=== PATIENT | male | born 1940 | race African-American/Black ===

== ENCOUNTER 2018-07-08 23:12 | Inpatient (IN) ==
[2018-07-09 00:46] LABS: BASO# 0.02 X1000 (0.0-0.2); BASO% 0.2 % (0.0-0.8); EOS# 0.02 X1000 (0.0-0.7); EOS% 0.2 % (0.0-10.0); HEMATOCRIT 39.5 % (42.0-52.0); HEMOGLOBIN 13.2 g/dL (14.0-18.0); LYMPH# 2.33 X1000 (1.2-3.4); LYMPH% 17.5 % (20.5-51.1); MCH 29.6 PG (27-31); MCHC 33.4 g/dL (33-37); MCV 88.6 FL (81-99); MONO# 0.89 X1000 (0.11-0.59); MONO% 6.7 % (1.7-9.3); MPV 10.9 FL (7.4-10.4); NEUT# 10.06 X1000 (1.4-6.5); NEUT% 75.4 % (42.2-75.2); PLT 422 X1000 (130-400); RBC 4.46 XMIL (4.7-6.1); RDW 13.5 % (11.5-14.5); WBC 13.32 X1000 (4.8-10.8)
[2018-07-09 01:31] LABS: ALB/GLOB RATIO 1.3; ALBUMIN 4.6 g/dL (3.5-5.0); CALCIUM 9.2 mg/dL (8.8-10.2); CREATININE 6.4 mg/dL (0.7-1.2); POTASSIUM 4.1 mmol/L (3.5-5.1); TOTAL BILIRUBIN 1.43 mg/dL (0.20-1.00); TOTAL PROTEIN 8.2 g/dL (6.3-8.3)
[2018-07-09] MEDS ORDERED: ZOFRAN IV ONE (02:21)
[2018-07-09] MEDS ORDERED: THORAZINE IV ONE (02:21)
[2018-07-09] MEDS ORDERED: NS IV ONE (02:21)
[2018-07-09] MEDS ORDERED: NS 1,000 ML IV ONE ×2 (02:21→04:54)
--- NOTE | 2018-07-09 02:41 | PROVIDER DOCUMENTATION ---
HPI-General Adult - General Chief Complaint: Post Op Complaint Stated Complaint: POST OP COMPLAINT Time Seen by Provider: 07/09/18 02:15 Source: patient, family Allergies/Adverse Reactions: Patient Allergies Allergy/AdvReac Type Severity Reaction Status Date / Time No Known Allergies Allergy Verified 07/05/14 10:49 Home Medications: Home Medication List Medication Instructions Recorded Confirmed Last Taken Type Aspirin EC 81 mg PO DAILY 04/01/14 07/05/14 07/05/14 07:00 History Omeprazole 40 mg PO DAILY 04/01/14 07/05/14 07/05/14 07:00 History Amoxicillin 500 mg PO TID 07/05/14 07/05/14 07/04/14 08:00 History LISINOpril [Prinivil] 10 mg PO DAILY 07/05/14 07/05/14 07/05/14 08:00 History Meclizine [Antivert] 12.5 mg PO TID PRN #20 tablet 07/05/14 Unknown Rx - History of Present Illness -Gen Adult Nature of Presenting Problems: 77 y/o M presents to the ED complaining of hiccups. States he had a lap splenic flexure resection due to a polyp done by Dr. Slater at [facility] on 06/21/18. States he had been doing well until a few days ago when he began to have hiccups and with this has had nausea and vomiting. No fever no diarrhea. States he called Dr. Slater who recommended he come to the ED to be evaluated. No fever. Review of Systems - Adult - REVIEW OF SYSTEMS - ADULT Constitutional: reports: no symptoms reported Eyes: reports: no symptoms reported Ears, Nose, Mouth & Throat: reports: no symptoms reported Cardiovascular: reports: no symptoms reported Respiratory: reports: no symptoms reported, other (hiccups) Gastrointestinal: reports: nausea, vomiting Genitourinary: reports: no symptoms reported Musculoskeletal: reports: no symptoms reported Integumentary: reports: no symptoms reported Neurological: reports: no symptoms reported Psychiatric: reports: no symptoms reported Endocrine: reports: no symptoms reported Hematologic/Lymphatic: reports: no symptoms reported Allergic/Immunologic: reports: no symptoms reported All Other Systems: Reviewed and Negative Past History - Adult - PAST MEDICAL HISTORY-ADULT Review of Records: reports: Old Records Reviewed, Nursing Assessment Review, Medications Reviewed, Social history reviewed & non-contributory. Cardiovascular: reports: HTN Gastrointestinal: reports: GERD Musculoskeletal: reports: orthopedic injury Other Conditions: reports: other (vertigo) - PRIOR SURGERIES/PROCEDURES Surgical/Procedure History: reports: joint replacement (left knee) Physical Exam-General - PHYSICAL EXAM-ADULT Initial Vital Signs Reviewed: Yes - CONSTITUTIONAL General Appearance: appears well, alert, no apparent distress - EYES Eyes: PERRL/EOMI - HEAD, EARS, NOSE, MOUTH & THROAT HENMT: normocephalic/atraumatic, moist mucous membranes, normal ENT inspection - NECK Neck: non-tender, full range of motion, supple - RESPIRATORY Respiratory: chest non-tender, lungs clear, normal breath sounds - CARDIOVASCULAR Cardiovascular: normal peripheral pulses, regular rate, rhythm, no edema, no JVD - GASTROINTESTINAL (ABDOMEN) Abdominal Exam: non tender, soft, other (incisions clean dry intacted and healing well). negative: distended - MUSCULOSKELETAL Back Exam: normal inspection, no CVA tenderness, no vertebral tenderness Extremity: normal range of motion, non-tender, no pedal edema, no calf tenderness - SKIN Integumentary: normal color, normal turgor, warm/dry - NEUROLOGIC Neurologic: grossly normal, no motor/sensory deficits - PSYCHIATRIC Psych/Mental Status: normal mood/affect, normal thought content, normal thought process, oriented x 3 Progress - PLAN OF CARE/RESULTS Progress/Plan/Lab Results: Vital Signs - 8 hr 07/08/18 23:23 Temperature 97.9 F Pulse Rate 96 H Respiratory Rate 15 Blood Pressure 101/65 Laboratory Results - last 24 hr 07/09/18 07/09/18 00:36 00:36 WBC 13.32 H RBC 4.46 L Hgb 13.2 L Hct 39.5 L MCV 88.6 MCH 29.6 MCHC 33.4 RDW Std Deviation 13.5 Plt Count 422 H MPV 10.9 H Immature Gran % (Auto) 0.0 Neut % (Auto) 75.4 H Lymph % (Auto) 17.5 L Lyman % (Auto) 6.7 Eos % (Auto) 0.2 Baso % (Auto) 0.2 Immature Gran # (Auto) 0.00 Neut # (Auto) 10.06 H Lymph # (Auto) 2.33 Lyman # (Auto) 0.89 H Eos # (Auto) 0.02 Baso # (Auto) 0.02 Sodium 141 Potassium 4.1 Chloride 94 L Carbon Dioxide 24 L Anion Gap 23 BUN 65 H Creatinine 6.4 H Estimated GFR/1.73 m2 10 BUN/Creatinine Ratio 10 Glucose 115 H Calculated Osmolality 301 Calcium 9.2 Total Bilirubin 1.43 H AST 59 H ALT 60 H Alkaline Phosphatase 97 Total Protein 8.2 Albumin 4.6 Globulin 3.6 Albumin/Globulin Ratio 1.3 Amylase 119 Lipase 74 H Orders Category Date Time Status IV Insertion ORDERED Care 07/09/18 02:21 Active NPO Diet 07/08/18 23:[address] ABD/PELVIS W/IV CONT ONLY [CT] Stat Exams 07/09/18 02:21 Ordered AMYLASE [CHEM] Stat Lab 07/09/18 00:36 Completed CBC WITH ELECTRONIC DIFF [HEME] Stat Lab 07/09/18 00:36 Completed COMPREHENSIVE METABOLIC PANEL [CHEM] Stat Lab 07/09/18 00:36 Completed LIPASE [CHEM] Stat Lab 07/09/18 00:36 Completed URINALYSIS W/POSS RFLX CULT [URINALYSIS] Stat Lab 07/08/18 23:35 Uncollected 0.9% Sodium Chloride Inj [Ns] 1,000 ml Med 07/09/18 02:21 Active IV 999 mls/hr Chlorpromazine [Thorazine] 50 mg Med 07/09/18 02:21 Active 0.9% Sodium Chloride Inj [Ns] 50 ml IV NOW Ondansetron [Zofran] Med 07/09/18 02:21 Discontinued 4 mg IV NOW ONE hiccups with nausea and vomiting after recent colon resection will further evaluate for causes including but not limited to abscess, perforation, diaphragmatic irritation, gastritis, pancreatitis Result Diagrams: 07/09/18 00:36 07/09/18 00:36 - REASSESSMENT Reassessment #1 Status: improving (feeling well, hiccups resolved. Discussed case and CT findings with Dr. Fajardo, Surgeon at [facility], who does not feel that pt's CT findings represent any acute infection and does not feel that pt needs any abx at this time. Recommends admission at our facility for treatment of his ARF. Discussed case wtih Dr Benitez, hospitalist who will see and admit pt.) - CT/MRI 1 CT Study: Abdomen, Pelvis Impression: Abnormal (Per radiologist read: moderate cholelithiasis, fat stranding in the region of the colonic suture anastamosis in the midabdomen associated diverticulosis, consideration would include mild acute diverticulitis. mild wall thickening of the distal thoracic esophagus, consideration would include esophagitis or esophageal neoplasm) Departure - Departure Date of Disposition Decision: 07/09/18 Time of Disposition Decision: 04:59 DIAGNOSIS: Hiccups Acute renal failure Qualifiers: Acute renal failure type: unspecified Qualified Code(s): N17.9 - Acute kidney failure, unspecified Disposition: ADMITTED INPATIENT 09 Certified Medical Emergency: Emergent Condition: Good Referrals and Follow-Ups: Ryanne Arrieta MD [Primary Care Provider] - - Critical Care Note This patient required my direct & personal management of CC.: No Attestation - Physician/ NICHOLE Attestation Patient care was provided by Advanced Practice Provider:: No The physician spent face to face time with patient:: Yes Advanced Practice Provider documentation review:: Supervising physician onsite and consulted in the evaluation and care of this patient. The physician did have a face to face encounter with the patient.
[2018-07-09 06:10] LABS: URINE SOURCE CLEAN CATCH
[2018-07-09 06:12] LABS: BILIRUBIN URINE SMALL (NEGATIVE); BLOOD URINE LARGE (NEGATIVE); COLOR YELLOW; GLUCOSE URINE NEGATIVE (NEGATIVE); KETONE URINE NEGATIVE (NEGATIVE); LEUKOCYTES URINE TRACE (NEGATIVE); NITRITE URINE NEGATIVE (NEGATIVE); PROTEIN URINE 50 mg/dL (NEGATIVE); SP GRAVITY URINE 1.016; TURBIDITY URINE HAZY (CLEAR); UROBILINOGEN URINE NORMAL (NORMAL)
[2018-07-09 06:13] LABS: UR EPITHELIAL CELLS <10 /HPF (<10); URINE BACTERIA NEGATIVE /HPF; URINE RBC TNTC /HPF (<10)
[2018-07-09] MEDS: NS 1,000 ML IV SCH ×3 (06:22→23:10)
[2018-07-09] MEDS ORDERED: ANTIVERT PO PRN (06:39)
[2018-07-09] MEDS: LEVAQUIN PO SCH (06:47)
[2018-07-09] MEDS: PRILOSEC PO SCH (06:47)
--- NOTE | 2018-07-09 06:48 | Diag Imaging Result Doc PS360 ---
CT ABDOMEN/PELVIS W/O CONTRAST - 07/09/2018 INDICATION: hiccups and renal failure s/p recent colon resecti COMPARISON: None FINDINGS: There is COPD in the lung bases. No infiltrates. Heart size is normal with no pericardial effusion. There are several radiodense stones in the gallbladder. No gallbladder distention or inflammation. No radiodense renal stones. No hydronephrosis or hydroureter. There are surgical suture lines of the transverse colon. There has been partial colectomy here mainly of the splenic flexure and descending colon. There is significant diverticulosis of the sigmoid colon which has been anastomosed to the transverse colon. No free air or free fluid. There is a calcification in the floor of the urinary bladder. This measures 5.6 mm. Urinary bladder is collapsed with nonspecific wall thickening. Prostate and rectum are normal. There is focal wall thickening of the distal esophagus. There are some adjacent lymph nodes here that are nonspecific. There are advanced degenerative changes of the spine and hips. No acute or suspicious bony lesion. IMPRESSION: 1. COPD. 2. Stones in the gallbladder. 3. Small stone in the urinary bladder. Source is unclear. 4. Diverticulosis coli. 5. Focal wall thickening of the distal esophagus. This may reflect esophagitis, stricture, or cancer. This exam was performed using automated exposure control, adjustment of mA or kV according to patient size, and/or use of iterative reconstruction technique Electronically signed by Anoop Raygoza 07/09/2018 6:46 AM
[2018-07-09 06:55] LABS: UR CREAT RANDOM 407.9 mg/dL (14-26); UR SODIUM < 10 mmoll
--- NOTE | 2018-07-09 07:41 | HISTORY AND PHYSICAL ---
CHIEF COMPLAINT: Hiccups. HISTORY OF PRESENT ILLNESS: Mr. Tomas Copeland is a 77-year-old male who has a history of hypertension, gastroesophageal reflux disease as well as vertigo. Recently, he had laparoscopic splenic flexure resection done for polyp. This was done by Dr. Slater at [facility] on 06/21/2018. The patient now presents to the hospital because of hiccups associated with nausea and vomiting. No diarrhea. No fever. His hiccups did respond to Thorazine. However, as part of the workup done in the ER he had the BUN and creatinine obtained which showed significant impairment in his renal function. The BUN is 65 and creatinine of 6.4. The patient will now be admitted to the hospital for further management. PAST MEDICAL HISTORY: Hypertension, gastroesophageal reflux disease as well as vertigo. PAST SURGICAL HISTORY: He has had left knee replacement as well as recent laparoscopic splenic flexure resection for polyp. SOCIAL HISTORY: No cigarette smoking. No alcohol or drug use. ALLERGIES: No known drug allergies. FAMILY HISTORY: Noncontributory. MEDICATIONS: Include the followin. Aspirin 81 mg p.o. daily. 2. Omeprazole 40 mg p.o. daily. 3. Amoxil 500 mg p.o. 3 times a day. 4. Lisinopril 10 mg p.o. daily. 5. Meclizine 12.5 mg 3 times a day p.r.n. REVIEW OF SYSTEMS: Constitutional: No fevers. TOMBSTONE SETTER: No headaches. HEENT: Eyes: No blurred vision. ENT: No sinus problems. Cardiovascular: No chest pain. Respiratory: No cough. GI: No nausea, vomiting, or diarrhea. : No dysuria. Musculoskeletal: No joint pains. Endocrinologic: No thyroid disease or diabetes. Hematology: No bleeding problems. PHYSICAL EXAMINATION: VITAL SIGNS: On admission, vital signs as follows: Temperature is 98.1 degrees, pulse 92, respiratory rate 16, blood pressure 91/51, and oxygen saturation is 96%. HEENT: Atraumatic, normocephalic. No oral lesions noted. NECK: No lymphadenopathy or thyromegaly. CARDIOVASCULAR: S1, S2. RESPIRATORY: There is evidence of good air entry bilaterally. ABDOMEN: Soft, nontender. No masses felt. EXTREMITIES: No evidence of edema. CENTRAL NERVOUS SYSTEM: No obvious focal deficits noted. LABORATORY: WBC is 13.32, hematocrit is 39.5 with a platelet count of 422,000. Sodium is 141, potassium 4.1, chloride 94, bicarb 24, BUN is 55 creatinine is 6.4. UA shows large amount of blood as well as 10-20 WBCs per high-power field. ASSESSMENT AND PLAN: This is a 77-year-old male who recently had laparoscopic resection of splenic flexure nonfocal polyp, and now presents to the hospital. He comes and found to have impaired renal function. 1. Acute kidney injury. We will discontinue lisinopril. Maintain patient on intravenous fluids. We will obtain urine electrolytes, renal ultrasound and check PTH level, 25 hydroxy vitamin D level. I will also get a CK level, ARELI level, ANCA level, hepatitis panel, and urine drug screen. Consult with Nephrology. 2. Anemia. We will obtain iron studies along with B12 and folate level. Stool for occult blood. 3. Abnormal liver function test. Get hepatitis panel, ARELI level, ferritin level, and also abdominal ultrasound. 4. Hypertension. Controlled. We will avoid EVER inhibitors. 5. Pyuria. We will obtain urine culture. Start patient on empiric antibiotics pending when the cultures return. 6. Deep vein thrombosis prophylaxis. Sequential compression devices. 7. Gastrointestinal prophylaxis. PPI. cc: MD Ras Potter MD MTDD
[2018-07-09 07:52] LABS: CK TOTAL 245 U/L (24-204); IRON SATURATION 16 %; TIBC 402 ug/dL; TOTAL IRON 64 ug/dL (53-167); UNBOUND IRON 338 ug/dL (112-346)
[2018-07-09] MEDS: ASPIRIN EC PO SCH (08:14)
--- NOTE | 2018-07-09 08:20 | Diag Imaging Result Doc PS360 ---
EXAM: US ABDOMEN-COMPLETE 07/09/2018 HISTORY: abnormal lfts TECHNIQUE: Abdominal ultrasound COMMENT: The visualized portions of the pancreas are within normal limits. The visualized portions of the aorta and inferior vena cava are within normal limits. The study is somewhat suboptimal due to poor sonographic windows and the patient's body habitus. Liver is slightly hyperechoic. There is antegrade flow in the portal vein. There are multiple stones with shadowing in the gallbladder. No para cholecystic fluid or wall thickening is present. There is no sonographic Payan sign. The common bile duct measures less than 3 mm. The kidneys are without evidence of hydronephrosis or mass. The spleen is not enlarged. The urinary bladder is not distended. IMPRESSION: Hepatic steatosis. Cholelithiasis. Electronically signed by Haresh Ramirez 07/09/2018 8:18 AM
[2018-07-09 10:24] LABS: ALBUMIN 4.5 g/dL (3.5-5.0); CALCIUM 8.8 mg/dL (8.8-10.2); CREATININE 6.9 mg/dL (0.7-1.2); PHOSPHORUS 5.6 mg/dL (2.7-4.5); POTASSIUM 4.1 mmol/L (3.5-5.1)
[2018-07-09] MEDS ORDERED: SODIUM CHLORIDE 0.9% INJ SCH (13:15)
[2018-07-09] MEDS ORDERED: PROTONIX IV SCH (13:15)
[2018-07-09] MEDS: ZOFRAN IV PRN ×2 (13:28→22:41)
[2018-07-09 16:35] LABS: URINE SOURCE VOIDED
[2018-07-09 16:40] LABS: BILIRUBIN URINE NEGATIVE (NEGATIVE); BLOOD URINE SMALL (NEGATIVE); COLOR YELLOW; GLUCOSE URINE NEGATIVE (NEGATIVE); KETONE URINE TRACE mg/dL (NEGATIVE); LEUKOCYTES URINE NEGATIVE (NEGATIVE); NITRITE URINE NEGATIVE (NEGATIVE); PROTEIN URINE TRACE mg/dL (NEGATIVE); SP GRAVITY URINE 1.013; TURBIDITY URINE CLEAR (CLEAR); UR EPITHELIAL CELLS <10 /HPF (<10); URINE BACTERIA NEGATIVE /HPF; URINE RBC <10 /HPF (<10); URINE WBC <10 /HPF (<10); UROBILINOGEN URINE NORMAL (NORMAL)
--- NOTE | 2018-07-09 17:04 | NEPHROLOGY CONSULTATION ---
DATE: 07/09/2018 REASON FOR CONSULTATION: Acute kidney injury. HISTORY OF PRESENT ILLNESS: Mr. Copeland is a 77-year-old man who was in his usual state of good health until he had a partial colectomy at [facility] on June 21. He was admitted for 2 to 3 days according to his and was having regular bowel movements though perhaps not as high volume as was normal for him. Otherwise he was eating. No other new symptoms, shortness of breath, swelling etc. He was discharged from the hospital on ondansetron and ibuprofen 800 mg 3 times a day in addition to his routine medicines which included lisinopril for hypertension. He had his postoperative followup visit on Thursday of this week at which time he received a good report. Subsequently on Thursday he began having hiccups which were without any other associated symptoms. Again his intake was somewhat low and he continued to take the medications as prescribed. Ultimately because his hiccups would not improve, he contacted [facility] and was directed to the emergency room for imaging. CT of the abdomen was performed which did not demonstrate any findings that were particularly relevant given his symptoms. He did have focal thickening of the distal esophagus as well as a small bladder stone, diverticulosis and gallbladder stones. Laboratory data collected at the time found his creatinine 6.4. He was treated with Thorazine and IV fluids and admitted to the hospital. The states that his urine volume has been somewhat low. He has been very somnolent since he received the Thorazine and he was really not able to participate in the exam. PAST MEDICAL HISTORY: As above. He does not have diabetes. HOME MEDICATIONS: Include aspirin, ibuprofen, ondansetron, omeprazole, lisinopril, amoxicillin, Antivert. ALLERGIES: None. SOCIAL HISTORY: He is and lives with his . No tobacco use. FAMILY HISTORY: Otherwise noncontributory. REVIEW OF SYSTEMS: Otherwise noncontributory. PHYSICAL EXAMINATION: Vital Signs: Blood pressure 118/58, heart rate 81, respirations 20, afebrile. General: No acute distress. Skin: Warm and dry. HEENT: Conjunctivae are pink. Pupils are equal. He resists eye opening however. Oropharynx is dry. Dentition normal. Tongue is midline. Trachea is nondisplaced. Neck: Neck veins are not distended. Heart: Regular rate and rhythm with S4 but no S3. No gallops otherwise, no murmurs, no rubs. Lungs: Have equal excursion, equal breath sounds. No crackles or wheezes, accessory muscle use or retractions. Abdomen: Soft, nontender. Normal bowel sounds. No organomegaly or masses or bruits. Extremities: Have no edema, clubbing, or cyanosis. IMPRESSION: Acute kidney injury. Presumed. His FENa is markedly low and his urine has both red cells and white cells. Differential includes intravascular volume depletion, hemodynamic acute kidney injury from impaired glomerular autoregulation in the context of lisinopril and high-dose ibuprofen. Otherwise, he is certainly at risk for acute interstitial nephritis from his ibuprofen. No urologic obstruction visible. PLAN: 1. IV fluids 100 mL an hour to continue. 2. Check urine electrolytes, urine eosinophils. 3. Hold ibuprofen and lisinopril as you are doing. 4. I counseled the patient and that he may require hemodialysis and kidney biopsy for diagnosis and management. I discussed the context in which these may be required and potential benefits as well as cost. cc: MD Ras Prieto MD
[2018-07-10] MEDS: ZOFRAN IV PRN ×4 (05:12→22:10)
[2018-07-10] MEDS: NS 1,000 ML IV SCH ×3 (05:18→18:55)
[2018-07-10 07:09] LABS: HEMATOCRIT 34.7 % (42.0-52.0); HEMOGLOBIN 11.3 g/dL (14.0-18.0); MCH 29.9 PG (27-31); MCHC 32.6 g/dL (33-37); MCV 91.8 FL (81-99); MPV 11.2 FL (7.4-10.4); RBC 3.78 XMIL (4.7-6.1); RDW 13.5 % (11.5-14.5); WBC 8.3 X1000 (4.8-10.8)
[2018-07-10 07:42] LABS: ALBUMIN 3.7 g/dL (3.5-5.0); CALCIUM 8.5 mg/dL (8.8-10.2); CREATININE 3.4 mg/dL (0.7-1.2); PHOSPHORUS 3.1 mg/dL (2.7-4.5); POTASSIUM 3.6 mmol/L (3.5-5.1)
[2018-07-10] MEDS: ASPIRIN EC PO SCH (10:20)
--- NOTE | 2018-07-10 11:17 | PROGRESS NOTE ---
DATE: 07/10/2018 SUBJECTIVE: The patient says he is feeling fine. OBJECTIVE: Vital Signs: Blood pressure is 122/66, respirations 16, pulse 72, temperature 98.5 degrees Fahrenheit. Oxygen saturation is 94%. HEENT: Normocephalic. EOMS intact. PERRLA. Throat clear. Lungs: Clear to auscultation and percussion without rhonchi, rales, or wheezes. Heart: Regular rate and rhythm without murmurs, gallops, friction rubs. Abdomen: Soft. Active bowel sounds. No organomegaly or tenderness. Neurological: Exam intact grossly. LABORATORY: Shows white count of 13,320; it has come down today to 8300. Hemoglobin 11.3, hematocrit 34.7 potassium is 3.6, creatinine came down from 6.9 to 3.4. Urine cultures are pending. The patient had 2 urinalyses on the same day. The first clean-catch urine showed 10 to 20 WBCs and RBCs too numerous to count. It was repeated 12 hours later, and there were trace ketones, but no blood, no pus. Two urine cultures are pending, but results are not back yet. ASSESSMENT: Acute renal failure. PLAN: Continue IV fluids and support. Question about UTI or not. cc: MD Ras Gonzalez Jr, MD
[2018-07-10 13:47] LABS: ANTINEUTROPHIL CYTOPLASMIC AB SEE COMMENTS
[2018-07-10] MEDS: PRILOSEC PO SCH (20:01)
--- NOTE | 2018-07-10 22:28 | NEPHROLOGY PROGRESS NOTE ---
DATE: 07/10/2018 SUBJECTIVE: He still has the hiccups, but he is more alert today. He is eating without difficulty and good urine output. OBJECTIVE: Vital Signs: Blood pressure 155/73, heart rate 86, respirations 20, afebrile. General: No acute distress. Skin: Warm and dry. Neck: Neck veins are not distended. Heart: Regular. No gallops. Lungs: Equal. No crackles. Extremities: Have no edema, clubbing, or cyanosis. IMPRESSION: Acute kidney injury. Nice improvement of creatinine from 6.9 to 3.4, with excellent urine output. Electrolytes and acid-base are in target. I would expect his creatinine will be near normal by tomorrow and thus able to be discharged. His hiccups are unrelated to his kidney disease and if persistent may require a more in depth evaluation. cc: MD Ras Prieto MD
[2018-07-10] MEDS ORDERED: ZOFRAN IV ONE (23:27)
[2018-07-11] MEDS: NS 1,000 ML IV SCH ×5 (01:26→20:59)
[2018-07-11] MEDS: PRILOSEC PO SCH (05:59)
[2018-07-11] MEDS: ZOFRAN IV PRN ×3 (05:59→18:45)
[2018-07-11] MEDS: LEVAQUIN PO SCH (06:00)
[2018-07-11 07:12] LABS: HEMATOCRIT 32.9 % (42.0-52.0); HEMOGLOBIN 10.7 g/dL (14.0-18.0); MCH 29.6 PG (27-31); MCHC 32.5 g/dL (33-37); MCV 91.1 FL (81-99); MPV 11.2 FL (7.4-10.4); RBC 3.61 XMIL (4.7-6.1); RDW 13.1 % (11.5-14.5); WBC 7.26 X1000 (4.8-10.8)
[2018-07-11 07:47] LABS: CALCIUM 8.7 mg/dL (8.8-10.2); CREATININE 1.7 mg/dL (0.7-1.2); POTASSIUM 3.5 mmol/L (3.5-5.1)
[2018-07-11 07:48] LABS: ALBUMIN 3.6 g/dL (3.5-5.0); PHOSPHORUS 2.5 mg/dL (2.7-4.5)
[2018-07-11 10:55] LABS: HEPATITIS PROFILE ACUTE SEE COMMENTS
[2018-07-11] MEDS: ASPIRIN EC PO SCH (11:21)
[2018-07-11] MEDS ORDERED: THORAZINE PO ONE (12:21)
[2018-07-11] MEDS ORDERED: DULCOLAX PR PRN (12:24)
--- NOTE | 2018-07-11 13:08 | PROGRESS NOTE ---
DATE: 07/11/2018 SUBJECTIVE: The patient says he was throwing up earlier, but he has been given something for nausea. He has been changed to a clear liquid renal diet. He also says he has not had a bowel movement in some time. He is not hurting in his abdomen. He does have hiccups and wanted treatment for that. OBJECTIVE: Vitals: Blood pressure 151/65, respirations 16, pulse 52, temperature 98.3 degrees Fahrenheit. Oxygen saturations 95%. HEENT: Normocephalic. EOMs intact. PERRLA. Throat clear. Neck: Supple. Lungs: Clear to auscultation and percussion without rhonchi, rales, or wheezes. He is hiccuping. Heart: Regular rate and rhythm without murmurs, gallops, friction rubs. Abdomen: Soft with active bowel sounds. No organomegaly or tenderness. Neurological: Cranial nerves 2-12 intact grossly, sensory and motor intact. Reflexes 1+ all. LABORATORY: White count 7260, hemoglobin 10.7, creatinine is down to 1.7 from 3.4 yesterday and 6.9 on 07/09. ASSESSMENT: 1. Acute kidney injury. 2. Hiccups. 3. Constipation. PLAN: Please see orders. cc: MD Ras Gonzalez Jr, MD
[2018-07-11 22:34] LABS: ALB/GLOB RATIO 1.7; DIRECT BILIRUBIN 0.2 mg/dL (0.00-0.20); TOTAL BILIRUBIN 0.77 mg/dL (0.20-1.00); TOTAL PROTEIN 6.4 g/dL (6.3-8.3)
[2018-07-11] MEDS: PHENERGAN IV PRN (22:46)
[2018-07-11] MEDS: SODIUM CHLORIDE 0.9% INJ PRN (22:47)
[2018-07-12] MEDS: ZOFRAN IV PRN ×3 (03:47→22:33)
[2018-07-12] MEDS: NS 1,000 ML IV SCH ×3 (04:31→22:33)
[2018-07-12 06:13] LABS: HEMATOCRIT 35.7 % (42.0-52.0); HEMOGLOBIN 11.8 g/dL (14.0-18.0); MCH 29.8 PG (27-31); MCHC 33.1 g/dL (33-37); MCV 90.2 FL (81-99); MPV 11.1 FL (7.4-10.4); RBC 3.96 XMIL (4.7-6.1); RDW 12.9 % (11.5-14.5); WBC 8.64 X1000 (4.8-10.8)
[2018-07-12 06:21] LABS: CREATININE 1.5 mg/dL (0.7-1.2); POTASSIUM 3.3 mmol/L (3.5-5.1)
[2018-07-12 06:22] LABS: ALBUMIN 3.9 g/dL (3.5-5.0); CALCIUM 8.9 mg/dL (8.8-10.2); PHOSPHORUS 2.6 mg/dL (2.7-4.5)
[2018-07-12] MEDS: SODIUM CHLORIDE 0.9% INJ PRN (06:41)
[2018-07-12] MEDS: PHENERGAN IV PRN (06:42)
[2018-07-12] MEDS: PRILOSEC PO SCH (08:13)
[2018-07-12 08:22] LABS: ALB/GLOB RATIO 1.6; ALBUMIN 3.9 g/dL (3.5-5.0); DIRECT BILIRUBIN 0.2 mg/dL (0.00-0.20); TOTAL BILIRUBIN 0.76 mg/dL (0.20-1.00); TOTAL PROTEIN 6.4 g/dL (6.3-8.3)
[2018-07-12] MEDS ORDERED: PEPCID IV SCH (08:30)
--- NOTE | 2018-07-12 09:22 | Diag Imaging Result Doc PS360 ---
ABDOMEN FLAT/UPRIGHT - 07/12/2018 INDICATION: pain COMPARISON: CT from 07/09/2018 FINDINGS: There is a nonobstructive bowel gas pattern. No free air or abdominal calcifications. IMPRESSION: No acute disease. Electronically signed by Anoop Raygoza 07/12/2018 9:20 AM
[2018-07-12] MEDS: POTASSIUM CHLORIDE 20 MEQ/SWI 20 MEQ/100 ML IVPB IV SCH ×3 (10:10→12:57)
[2018-07-12] MEDS: CARAFATE LIQUID PO SCH ×3 (11:16→22:28)
[2018-07-12] MEDS: PROTONIX IV SCH (14:31)
[2018-07-12] MEDS: SODIUM CHLORIDE 0.9% INJ SCH (14:31)
--- NOTE | 2018-07-12 17:59 | GASTROENTEROLOGY CONSULTATION ---
DATE: 07/12/2018 ATTENDING PHYSICIAN: Dr. Arrieta. PRIMARY CARE DOCTOR: Dr. Arrieta. REASON FOR CONSULTATION: Burning sensation in the chest and reflux disease, and CT scan showing evidence of esophagitis. HISTORY OF PRESENT ILLNESS: Mr. Copeland is a 77-year-old male who was admitted on 07/09/2018 for hiccups. The patient had a history of multiple colon polyps and diverticulosis. One of the polyps in the descending colon was unresectable. He was sent to [facility] for a second look colonoscopy but the GI physicians at [facility] could not resect the polyp. He eventually underwent a left hemicolectomy on 06/21/2018 at [facility] by Dr. Slater. He was in the hospital 4 days and was discharged. Postoperatively, he had complicated form of worsening reflux, heartburn, hiccups, dehydration, and constipation. He was admitted on 07/09/2018. At that time, he had worsening hiccups, nausea, and vomiting, and renal failure. With hydration over the last 3 days, his renal function has improved but he continues to have burning sensation in the chest and hiccups. CT scan showed evidence of thickening on the distal esophagus. Gastroenterology was consulted for further management. PAST MEDICAL HISTORY: Hypertension, reflux disease, vertigo, colon polyps, diverticulosis, constipation. PAST SURGICAL HISTORY: Left knee replacement, recent laparoscopic left hemicolectomy for descending colon polyp. SOCIAL HISTORY: No history of smoking, alcohol, tobacco use. He is . Family is very supportive and at the bedside. I spoke to the patient's and daughter at bedside. ALLERGIES: No known drug allergies. FAMILY HISTORY: Noncontributory. MEDICATIONS IN THE HOSPITAL: Include Dulcolax 10 mg per rectal daily as needed, chlorpromazine IV q.6 hours, famotidine 20 mg IV q.12 hours, and Antivert 12.5 mg p.o. t.i.d., normal saline at 125 mL per hour, Zofran 4 mg IV q.6 hours, Phenergan 25 mg IV q.6 hours, Carafate 1 g every 6 hours. We will switch him to Protonix. DIET: We will switch him from a renal diet to a full liquid diet. REVIEW OF SYSTEMS: He denies any fevers, rigors, chills, chest pain. He does have a burning sensation in his lower chest, upper abdomen. He denies any shortness of breath. He denies any cardiac arrhythmias. He does have constipation and nausea. He does have some arthritis. Denies any neurological complaints. PHYSICAL EXAMINATION: Vital Signs: Temperature of 97.5 degrees, pulse rate of 76, respiratory rate of 21, blood pressure 130/64, saturating 96% on room air. Body weight of 208 pounds 14.4 ounces. BMI 27 kg/m2. General Appearance: Moderately built, moderately nourished, lying in bed, in no acute distress. HEENT: Mild pallor. No icterus. Pupils equal, react to light. Neck: Supple. Abdomen: Mild discomfort in the epigastrium. No rebound or guarding. He has a surgical dressing around the umbilicus from recent surgery. No guarding or rebound. Extremities: No cyanosis, clubbing. Neurologic: Alert, awake, oriented x3. LABS: Hemoglobin and hematocrit 11.8 and 35.7, white count of 8.64, platelet count 303,000. Sodium 142, potassium 3.3, chloride 101, bicarb 30, anion gap 21, BUN of 24, creatinine 1.5, glucose of 90, calcium is 8.9, phosphorus 2.6. Total bilirubin is 0.76, direct of 0.2, AST 33, ALT 60, alkaline phosphatase 83, total protein 6.4, albumin of 3.9. Hepatitis panel is nonreactive. ARELI level is negative. On admission, his liver enzymes were slightly high which have now trended down. Ultrasound of the abdomen was done which showed hepatic steatosis and cholelithiasis. CT of the abdomen and pelvis showed COPD, stones in the gallbladder, small stone in the urinary bladder, diverticulosis coli, focal wall thickening of the distal esophagus. This may reflect esophagitis, stricture, or cancer. IMPRESSION AND PLAN: 1. Abnormal CT scan showing thickening of the wall of the distal esophagus, likely reflux esophagitis. 2. Gallstones, likely causing elevated liver enzymes. 3. Hepatic steatosis. 4. History of diverticulosis of the colon. 5. History of multiple polyps and required left colon resection at [facility] on 06/21/[address] Slater. RECOMMENDATIONS: 1. We will switch the patient to a full liquid diet. We will convert him to Protonix twice daily. We will discontinue Pepcid for now. We will also discontinue the Phenergan. It will slow down the stomach emptying. We will start him on MiraLAX twice daily and hold for more than 3 bowel movements in 24 hours. We will schedule him for EGD tomorrow with Dr. Leija. The risks, benefits, indications, and alternatives were discussed with the patient and family, and all questions were answered. 2. The patient has gallstones. He may need gallbladder resection. The patient has mild hepatic steatosis but his BMI is 27 kg/m2. We will recommend the patient to take a low fat and carbohydrate diet. 3. The above plan was discussed with the patient and family, and all questions were answered. Please call us with any further questions. cc: MD Ras Ramirez MD MTDD
--- NOTE | 2018-07-12 18:37 | NEPHROLOGY PROGRESS NOTE ---
DATE: 07/12/2018 SUBJECTIVE: Patient is sitting up in bed. No complaints. OBJECTIVE: Vital Signs: Temperature 97.5, pulse 76, respiratory rate 20, blood pressure 134/64. Intake 5.1 L, output 753 mL. General: This is an elderly gentleman resting in bed. Awake and alert. No acute distress. HEENT: Normocephalic, atraumatic. LALA. Neck: Supple. No JVD. Cardiovascular: Regular rate and rhythm. Pulmonary: Clear bilaterally. Abdomen: Soft, positive bowel sounds. : Not inspected. Extremities: No clubbing, cyanosis, or edema. Integumentary: Skin is warm and dry. LAB DATA: WBC of 8.6, creatinine 1.5. ASSESSMENT AND PLAN: 1. Acute kidney injury with improvement. He has had continuing treatment of his renal function over the course of the hospitalization. At this point, we will sign off. We will follow with him as an outpatient if you desire. 2. Hiccups. Is followed by Gastroenterology, unrelated to his renal issues. Dictated by JAMSHID Webb for Catracho Fisher MD Face to face encounter, data reviewed, discussed with Anahi Heller on 07/12/18. I agree with the above assessment and plan of care. cc: MD Ras Prieto MD MTDD
--- NOTE | 2018-07-12 18:55 | PROGRESS NOTE ---
DATE: 07/12/2018 SUBJECTIVE: Interval history was reviewed. The patient was seen 1 time in my office before by Dr. Nina and this morning family was upset that they want to be transferred to [facility]. I spoke to the nurse for Dr. Slater. 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 The patient was dehydrated, saline was given. Appreciate Dr. Fisher consult. Patient has incessant hiccups, not able to eat. EXAMINATION: Temperature is 99 degrees, pulse 82, blood pressure 152/57, 95% on room air.HEENT: Within normal limits. Neck: Supple. Chest: Clear. Heart: Sounds are regular. Belly: Is soft, nontender. Good bowel sounds. No obvious neurological deficits. INVESTIGATIONS: CBC. White cell count 8.6, hematocrit 35, platelets 303,000. Sodium 142, potassium 3.3, chloride 100, BUN 25, creatinine 1.5. LFTs were normal. Hepatitis panel was negative. CT findings discussed with the family. ASSESSMENT AND PLAN: 1. Acute kidney injury due to dehydration, improving. Continue on IV fluids. 2. Hypokalemia. Replace the potassium. 3. Hiccups with acid reflux disease. Patient is well known to Dr. Callahan. Continue on IV Protonix, Carafate. 4. Thorazine for hiccups and follow up on flat/upright of the abdomen and gallstones asymptomatic and consider EGD and heme-positive stools continues. I spoke to family at length at the bedside almost for 35 minutes for coordination care and finally agreeable to stay in the hospital. I spoke to Dr. Gloria as well as Dr. Callahan. LEVEL OF DOCUMENTATION: 35 minutes. cc: Ras Arrieta MD
[2018-07-12] MEDS: THORAZINE 25 MG in NS 25 ML IV PRN (20:02)
[2018-07-12] MEDS: MIRALAX PO SCH (22:28)
[2018-07-13] MEDS: PROTONIX IV SCH ×2 (01:48→14:03)
[2018-07-13] MEDS: THORAZINE 25 MG in NS 25 ML IV PRN ×2 (01:48→12:29)
[2018-07-13] MEDS: CARAFATE LIQUID PO SCH ×4 (01:48→19:48)
[2018-07-13] MEDS: SODIUM CHLORIDE 0.9% INJ SCH ×2 (01:49→14:04)
[2018-07-13] MEDS: NS 1,000 ML IV SCH ×3 (05:39→19:12)
[2018-07-13 06:24] LABS: HEMATOCRIT 33.6 % (42.0-52.0); HEMOGLOBIN 11.1 g/dL (14.0-18.0); MCV 90.8 FL (81-99); MPV 11.1 FL (7.4-10.4); RBC 3.7 XMIL (4.7-6.1); RDW 13.1 % (11.5-14.5); WBC 8.83 X1000 (4.8-10.8)
[2018-07-13 06:49] LABS: ALBUMIN 3.4 g/dL (3.5-5.0); CALCIUM 8.2 mg/dL (8.8-10.2); CREATININE 1.4 mg/dL (0.7-1.2); PHOSPHORUS 2.1 mg/dL (2.7-4.5); POTASSIUM 3.6 mmol/L (3.5-5.1)
[2018-07-13] MEDS: MIRALAX PO SCH ×2 (08:03→19:48)
[2018-07-13] MEDS ORDERED: DIPRIVAN 1% ONE (08:08)
--- NOTE | 2018-07-13 09:49 | OPERATIVE NOTE ---
PROCEDURE DATE: 07/13/2018 PROCEDURE: Upper GI endoscopy. PROVIDER: Gerber Lejia MD. INDICATIONS: Nausea, vomiting, abdominal pain, and constipation. MEDICATIONS: Monitored Anesthesia Care. DESCRIPTION OF PROCEDURE: Prior to procedure, a history and physical was performed. The patient's medication and allergies were reviewed. The patient's tolerance to previous anesthesia was also reviewed. The risks and benefits of the procedure and sedation options and risks were discussed with the patient. All questions were answered. Informed consent was obtained. After reviewing the risks, the patient was deemed in satisfactory condition to undergo the procedure. The endoscope was passed under direct visualization. Throughout the procedure, the patient's blood pressure, pulse and oxygen saturation were monitored continuously. The endoscope was introduced in the mouth and advanced to the second part of the duodenum. The upper GI endoscopy was accomplished without difficulty. The patient tolerated the procedure COMPLICATIONS: The patient had some nausea and vomiting with likely mild aspiration during the procedure. ESTIMATED BLOOD LOSS: Minimal. FINDINGS: The esophagus with fluid filled. There was LA grade D esophagitis with a benign stricture found at the GE junction approximately 40 cm from the incisors. Aspiration of the fluid in the esophagus was performed within the stomach. There was also copious amounts of fluid approximately 500 mL of feculent appearing fluid was suctioned. His stomach was dilated. Retroflexion in the stomach was unremarkable. There was no evidence of gastric outlet obstruction. The duodenal bulb was also dilated as well as the second portion of duodenum with also fecal material concerning for possible bowel obstruction. A NG tube was placed. Towards the end of the procedure, the patient subsequently developed nausea and vomiting, which was suctioned. His O2 saturations dropped to about 89%. He was able to cough and protect his airway. At the end of procedure prior to leaving the room, his oxygen saturation was 95%. IMPRESSION: LA grade D esophagitis, esophageal stricture, fluid-filled esophagus, stomach and small bowel. Dilated stomach and small bowel, concerning for possible bowel obstruction versus ileus. RECOMMENDATIONS: Keep NPO with NG tube to low intermittent wall suction. We will repeat a CT scan of the abdomen and pelvis to evaluate for ileus versus obstruction. Serial abdominal exams. We will monitor for signs of aspiration pneumonia. We will follow with you. Please call with any questions or concerns. cc: Ras Arrieta MD
--- NOTE | 2018-07-13 14:54 | Diag Imaging Result Doc PS360 ---
CT ABD/PELVIS W/ORAL CONT ONLY - 07/13/2018 INDICATION: r/o bowel obstruction COMPARISON: 07/09/2018 FINDINGS: Oral contrast was administered through the nasogastric tube. There is a nasogastric tube with the tip in the stomach. There is COPD in the lung bases. There are trace bilateral pleural effusions. Stable gallstones in the gallbladder. No gallbladder distention or inflammation. Stable partial colectomy changes. Stable minimal fat stranding around the anastomosis site of the colon. No bowel obstruction. Normal appendix. No free air or free fluid. Urinary bladder, prostate, and rectum are normal. There is some distal esophageal wall thickening. There are some small adjacent lymph nodes that are enlarged. There are moderate degenerative changes of the spine. No acute or suspicious bony lesion. IMPRESSION: 1. No bowel obstruction. No change in configuration of the bowel itself. 2. Wall thickening of the distal esophagus focally. Small adjacent lymph nodes. Consider esophagoscopy if this has not already been performed. 3. Gallstones in the gallbladder. 4. Trace bilateral pleural effusions. This exam was performed using automated exposure control, adjustment of mA or kV according to patient size, and/or use of iterative reconstruction technique Electronically signed by Anoop Raygoza 07/13/2018 2:51 PM
[2018-07-13] MEDS ORDERED: DULCOLAX PR ONE (17:03)
[2018-07-13] MEDS ORDERED: POTASSIUM PHOSPHATE 30 MEQ in NS 250 ML IV ONE (19:01)
--- NOTE | 2018-07-13 19:36 | PROGRESS NOTE ---
DATE: 07/13/2018 SUBJECTIVE: The patient still has some hiccups. Waiting for EGD. OBJECTIVE: On exam, temperature is 98 degrees, vital signs are stable. HEENT exam within normal limits. Chest is clear. Heart sounds are regular. Belly is soft, nontender. No obvious deficits. LABORATORY DATA: CBC: White cell count 8.8, hematocrit 33, platelets 279,000. SMA 7: Creatinine is 1.4, phosphorus 2.1, albumin 3.4. ASSESSMENT AND PLAN: 1. Hiccups due to esophagitis and not able to eat. Waiting for esophagogastroduodenoscopy. 2. Hypokalemia, hypophosphatemia. Replace the potassium and phosphate. 3. Acute kidney injury, better. 4. Continue intravenous Protonix and Carafate, intravenous fluids. Based on the esophagogastroduodenoscopy, further recommendations will be followed. Level of documentation 25 minutes. cc: Ras Arrieta MD
[2018-07-13] MEDS: FLEET ENEMA PR SCH (19:48)
[2018-07-13] MEDS: ZOFRAN IV PRN (22:16)
[2018-07-14] MEDS: MIRALAX PO SCH ×4 (01:27→20:55)
[2018-07-14] MEDS: NS 1,000 ML IV SCH ×3 (01:27→22:21)
[2018-07-14] MEDS: FLEET ENEMA PR SCH (01:28)
[2018-07-14] MEDS: CARAFATE LIQUID PO SCH ×6 (01:29→20:54)
[2018-07-14] MEDS: PROTONIX IV SCH ×2 (01:57→14:28)
[2018-07-14] MEDS: THORAZINE 25 MG in NS 25 ML IV PRN (03:14)
[2018-07-14 07:04] LABS: BASO# 0.01 X1000 (0.0-0.2); BASO% 0.1 % (0.0-0.8); EOS# 0.07 X1000 (0.0-0.7); EOS% 0.8 % (0.0-10.0); HEMATOCRIT 31.3 % (42.0-52.0); HEMOGLOBIN 10.2 g/dL (14.0-18.0); LYMPH# 1.69 X1000 (1.2-3.4); LYMPH% 20.4 % (20.5-51.1); MCH 29.7 PG (27-31); MCHC 32.6 g/dL (33-37); MCV 91.3 FL (81-99); MONO# 0.68 X1000 (0.11-0.59); MONO% 8.2 % (1.7-9.3); MPV 11.2 FL (7.4-10.4); NEUT# 5.83 X1000 (1.4-6.5); NEUT% 70.5 % (42.2-75.2); PLT 253 X1000 (130-400); RBC 3.43 XMIL (4.7-6.1); WBC 8.28 X1000 (4.8-10.8)
[2018-07-14 07:05] LABS: AGAP 12; ALBUMIN 3.1 g/dL (3.5-5.0); BUN 16 mg/dL (8-22); CALCIUM 7.9 mg/dL (8.8-10.2); CHLORIDE 108 mmol/L (98-107); COSMO 283; CREATININE 1.2 mg/dL (0.7-1.2); ESTIMATED GFR > 60; GLUCOSE 82 mg/dL (70-104); PHOSPHORUS 2.6 mg/dL (2.7-4.5); POTASSIUM 3.6 mmol/L (3.5-5.1); SODIUM 142 mmol/L (136-145); TCO2 22 mmol/L (25-35)
[2018-07-14] MEDS: ZOFRAN IV PRN (08:14)
[2018-07-14] MEDS ORDERED: POTASSIUM PHOSPHATE 40 MEQ in NS 250 ML IV ONE (08:30)
--- NOTE | 2018-07-14 09:11 | Diag Imaging Result Doc PS360 ---
EXAM: FLAT/UPRIGHT ABD/1 VIEW CHEST INDICATION: post op ileus TECHNIQUE: COMPARISON: None. FINDINGS: There has been a prior left hemicolectomy. Contrast media from a previous CT is seen in the right colon. There is no obstructive bowel pattern. There is no evidence of large volume free abdominal gas. The lungs are grossly clear. There is no discrete pleural fluid collection or pneumothorax. The cardiomediastinal silhouette and central vasculature are grossly unremarkable. IMPRESSION: No bowel distention identified to indicate ileitis by plain radiograph. Electronically signed by Romie Flores 07/14/2018 9:09 AM
[2018-07-14] MEDS: SODIUM CHLORIDE 0.9% INJ SCH (14:28)
[2018-07-14] MEDS ORDERED: FLEET ENEMA PR SCH (21:00)
--- NOTE | 2018-07-14 22:28 | PROGRESS NOTE ---
DATE: 07/14/2018 CHIEF COMPLAINT: The patient's family was not happy last night. He has persistent hiccups. NG tube was placed with low wall suction. No significant drainage noted. REVIEW OF SYSTEMS: The rest of the review of systems are normal. PHYSICAL EXAMINATION: Vital Signs: Temperature is 98.9 degrees, pulse is 104, blood pressure is 144/67. HEENT: Within normal limits. Neck: Supple. Chest: Clear. Heart: Sounds are regular. Abdomen: Soft. NG tube was placed. LABORATORY INVESTIGATIONS: CBC: White cell count 8.2, hematocrit 31, platelets 253,000. Sodium 142, potassium 3.6, chloride 108, BUN 16, creatinine 1.2, phosphorus low, albumin 3.1. IMAGING: Abdominal x-ray no obstruction seen. Chest x-ray no infiltrates. ASSESSMENT: 1. Persistent hiccups due to esophagitis and due to acid reflux disease. 2. Hypokalemia and hypophosphatemia. 3. Deep venous thrombosis prophylaxis. Placed on the antithrombotic stockings. PLAN OF CARE: 1. Discontinue NG tube. 2. Ice chips. 3. Continue on Thorazine and Zofran, IV Protonix. 4. Continue IV fluids. Acute kidney injury is improved. Repeat the labs in the morning. I appreciated surgical consult by Dr. Tripathi and will follow up. LEVEL OF DOCUMENTATION: 35 minutes. cc: Ras Arrieta MD MTDD
--- NOTE | 2018-07-14 23:52 | PROVIDER PROGRESS NOTE ---
Progress Note SUBJECTIVE: No acute overnight events. Afebrile. Patient reports persistent hiccups. No significant abdominal pain, worsening distension. He had an enema and miralax overnight without significant bowel movements. He does admit that he has had less frequent BMs since his surgery, but not complete absence of bowel movements. OBJECTIVE: Last Vital Signs Temp 98.9 F 07/14/18 23:23 Pulse 71 07/14/18 23:23 Resp 19 07/14/18 23:23 BP 150/73 07/14/18 23:23 Pulse Ox 96 07/14/18 23:23 Height 6 ft 1 in Weight 208 lb 14.4 oz GEN: awake, alert, NAD HEENT: anicteric, NGT in place with copious bilious fluid approximately 1300 mL removed, about 230 ml of emesis CV: RRR, no murmurs PULM: CTAB, no wheezing ABD: soft NT/ND, BS present EXT: no cce NEURO: nonfocal LABS: 07/14/18 07/14/18 05:58 05:58 WBC 8.28 Hgb 10.2 L Plt Count 253 Sodium 142 Potassium 3.6 Chloride 108 H Carbon Dioxide 22 L BUN 16 Creatinine 1.2 Glucose 82 KUB 06/13 negative for ileus or obstruction EGD 06/12 IMPRESSION: LA grade D esophagitis, esophageal stricture, fluid-filled esophagus, stomach and small bowel. Dilated stomach and small bowel, concerning for possible bowel obstruction versus ileus. CTAP 06/12 IMPRESSION: 1. No bowel obstruction. No change in configuration of the bowel itself. 2. Wall thickening of the distal esophagus focally. Small adjacent lymph nodes. Consider esophagoscopy if this has not already been performed. 3. Gallstones in the gallbladder. 4. Trace bilateral pleural effusions. A/P: Mr. Tomas Copeland is a 77 year old man who underwent partial left colectomy for unresectable colon polyp on 06/21 who was admitted with FERN and intractable hiccups. Diagnostic EGD was performed yesterday for evaluation of abnormal esophageal wall thickening that refilled LA grade D esophagitis and fluid-filled esophagus, stomach, and small bowel with feculent fluid concerning for bowel obstruction. The stomach and duodenum were dilated on endoscopy and NGT was placed during procedure. Subsequent CT was negative for obstruction and or ileus. Patient had high NGT output overnight and has remained NPO. Patient does admit to decreased frequency of stools since his surgery. # Concern for bowel obstruction vs. constipation: Dr. Tripathi following; KUB negative; trial clears; recommend SBFT if no improvement; on bowel regimen # Hiccups: likely from above; improved with thorazine # N/V: antiemetics prn # LA grade D esophagitis: secondary to reflux of gastric contents: PPI IV BID; stop carafate # Abnormal LFTs: 2/2 to hepatic steatosis; ALT>ALT; hepatitis panel negative; unlikely related to gallstones; no signs of acute cholecystits/choledoch on exam, labs, or imaging Will follow with you
[2018-07-15] MEDS: NS 1,000 ML IV SCH ×4 (01:00→22:03)
[2018-07-15] MEDS: CARAFATE LIQUID PO SCH ×4 (01:52→22:03)
[2018-07-15] MEDS: PROTONIX IV SCH ×2 (01:52→13:51)
[2018-07-15 07:08] LABS: BASO# 0.01 X1000 (0.0-0.2); BASO% 0.1 % (0.0-0.8); EOS# 0.12 X1000 (0.0-0.7); EOS% 1.8 % (0.0-10.0); HEMATOCRIT 29.5 % (42.0-52.0); HEMOGLOBIN 9.5 g/dL (14.0-18.0); LYMPH# 1.37 X1000 (1.2-3.4); LYMPH% 20.5 % (20.5-51.1); MCH 29.9 PG (27-31); MCHC 32.2 g/dL (33-37); MCV 92.8 FL (81-99); MONO# 0.55 X1000 (0.11-0.59); MONO% 8.2 % (1.7-9.3); MPV 11.6 FL (7.4-10.4); NEUT# 4.64 X1000 (1.4-6.5); NEUT% 69.4 % (42.2-75.2); PLT 228 X1000 (130-400); RBC 3.18 XMIL (4.7-6.1); RDW 13.2 % (11.5-14.5); WBC 6.69 X1000 (4.8-10.8)
[2018-07-15 07:29] LABS: AGAP 10; BUN 13 mg/dL (8-22); CALCIUM 8.2 mg/dL (8.8-10.2); CHLORIDE 111 mmol/L (98-107); COSMO 286; CREATININE 1.2 mg/dL (0.7-1.2); ESTIMATED GFR > 60; GLUCOSE 80 mg/dL (70-104); POTASSIUM 3.7 mmol/L (3.5-5.1); SODIUM 144 mmol/L (136-145); TCO2 23 mmol/L (25-35)
[2018-07-15] MEDS: MIRALAX PO SCH ×2 (08:00→22:03)
[2018-07-15] MEDS: LOVENOX SUBQ SCH (08:00)
--- NOTE | 2018-07-15 08:12 | PROGRESS NOTE ---
DATE: 07/15/2018 SUBJECTIVE: The patient is better. NG tube was discontinued. Hiccups are better. The patient had several bowel movements. He is feeling a lot better. is at bedside. He is in the bathroom this morning. PHYSICAL EXAMINATION: Temperature is 98 degrees, pulse 71, blood pressure 150/73. Physical exam unremarkable. Good bowel sounds. INVESTIGATIONS: CBC: White cell count 6.6, hematocrit 29.5, platelets 228,000. SMA 7 is normal. Chest x-ray was clear. ASSESSMENT AND PLAN: 1. Hiccups, resolved. 2. Nausea and vomiting due to significant gastroesophagitis, reflux disease. Continue intravenous Protonix. 3. Status post left hemicolectomy, stable. 4. Ileus, is improving. 5. Decreased intravenous fluids to 50 mL per hour. 6. Advance to clear liquids. Continue intravenous proton pump inhibitor and if he tolerates very well over the next 24 hours, we will discharge him in the morning. 7. Gallstones, asymptomatic. 8. Acute kidney injury, is improved. LEVEL OF DOCUMENTATION: 35 minutes. cc: Ras Arrieta MD
--- NOTE | 2018-07-15 08:34 | Diag Imaging Result Doc PS360 ---
EXAM: ABDOMEN FLAT/UPRIGHT - 07/15/2018 HISTORY: post op ileus TECHNIQUE: Supine and upright abdomen COMPARISON: 07/14/2018 FINDINGS: The bowel gas pattern is unremarkable. There is a small amount of residual oral contrast from recent CT scan in the right colon, which is decreased from prior. There is no free air identified. There are calcified gallstones noted at the lateral right upper quadrant. There are possible stones in the left kidney. IMPRESSION: Unremarkable bowel gas pattern. Electronically signed by Matty Jung 07/15/2018 8:32 AM
--- NOTE | 2018-07-15 08:36 | Diag Imaging Result Doc PS360 ---
EXAM: CHEST-2 VIEWS - 07/15/2018 HISTORY: hypoxia TECHNIQUE: Chest two views COMPARISON: 07/14/2018 one view chest FINDINGS: Heart size is normal. Lungs appear essentially clear. There are possible tiny bilateral pleural effusions. There is no pneumothorax identified. IMPRESSION: Possible tiny bilateral pleural effusions. No other evidence of acute disease. Electronically signed by Matty Jung 07/15/2018 8:33 AM
[2018-07-15] MEDS: SODIUM CHLORIDE 0.9% INJ SCH (13:51)
--- NOTE | 2018-07-15 14:45 | GASTROENTEROLOGY PROGRESS NOTE ---
DATE: 07/15/2018 SUBJECTIVE: Patient is resting in bed. His is at the bedside. The patient is feeling better. His hiccups are improving. He had moved his bowels today. Vital Signs: Temperature of 97.9, pulse of 72, respiratory rate of 12 blood pressure 141/69, saturating 97% on room air. General Appearance: Moderately built, lying in bed, in no acute distress. HEENT: Mild pallor. No icterus. Neck: Supple. Abdomen: Soft, nontender, nondistended. No guarding. Extremities: No cyanosis or clubbing. Neurologic: Alert, awake, oriented. LABS: Hemoglobin and hematocrit is 9.5 and 29.1, white count 6.6, platelet count of 228,000. Sodium 140, potassium 3.7, chloride 111, anion gap 10, BUN of 13 creatinine 1.2,, glucose of 80, calcium is 8.2. Stool for occult blood is positive. Urine culture negative. Chest x-ray done today showed possible tiny bilateral pleural effusion. No other evidence of acute disease. IMPRESSION AND PLAN: 1. Severe esophagitis LA grade D. Continue on PPIs b.i.d. for 3 months. At that time, we will possibly change to PPI once daily. Patient may need a repeat EGD in 3 months if symptomatic. 2. Hepatic steatosis. Continue to be on low fat/low carbohydrate diet. 3. Gallstones, asymptomatic. Continue to watch for now. The nausea and vomiting is improved. Continue antiemetics. Hiccups have improved. Continue on Thorazine as needed. 4. Constipation. The patient is moving his bowels. We will continue on bowel regimen with Dulcolax as needed. 5. DVT prophylaxis with Lovenox. 6. The patient will continue MiraLAX twice daily for constipation. 7. The above plans were discussed with the patient and family and all questions answered. Please call us with any further questions. We will sign off at this time. I will be available with any questions or concerns. We will see the patient back in clinic in 3 months or discharge. cc: MD Ras Ramirez MD [facility]
[2018-07-16] MEDS: ZOFRAN IV PRN ×2 (00:37→09:54)
[2018-07-16] MEDS: CARAFATE LIQUID PO SCH ×2 (02:53→09:54)
[2018-07-16] MEDS: SODIUM CHLORIDE 0.9% INJ SCH (02:53)
[2018-07-16] MEDS: PROTONIX IV SCH (02:53)
[2018-07-16 07:39] VITALS: BP 145/67
[2018-07-16] MEDS: LOVENOX SUBQ SCH (09:54)
[2018-07-16] MEDS: MIRALAX PO SCH (09:54)
--- NOTE | 2018-07-20 14:58 | DISCHARGE SUMMARY ---
ADMISSION DATE: 07/09/2018 DISCHARGE DATE: 07/16/2018 DISCHARGING DIAGNOSIS: Acute kidney injury due to prerenal azotemia. SECONDARY DIAGNOSIS: 1. Persistent hiccups. 2. Dysphagia due to esophageal reflux disease with esophagitis. 3. Constipation. 4. Gallstones, asymptomatic. 5. Hypertension. 6. Status post left hemicolectomy due to large Polyp on 06/21/2018. 7. History of gout. CONSULTS: 1. Dr. Catracho Fisher. 2. Dr. Leija. 3. Dr. Tripathi. PROCEDURES: EGD. FINDINGS: Significant esophagitis, esophageal stricture with a dilated stomach with gastric contents. BRIEF HISTORY: Please see the H and P that was done by hospitalist. In brief, he is a 77-year- old male, had a routine colonoscopy, was found significant polyps in the splenic flexure by Dr. Chavez, referred to B to Dr. Slater. The patient performed laparoscopic left hemicolectomy. Since then, the patient has some ileus, constipation, nausea, vomiting, came in with intravascular volume dehydration. He also has persistent hiccups. HOSPITAL COURSE: 1. He was given IV fluids, follow up hydration, renal function test came back normal. Abdominal ultrasound, hepatic steatosis. Cholelithiasis. No evidence of hydronephrosis. Followup hydration, renal function test came back normal. 2. Electrolyte abnormalities were replaced for hypokalemia. 3. Urine cultures were negative. 4. The patient has persistent hiccups, nausea, not able to keep anything down. EGD was done by Dr. Leija with above findings. NG tube was placed with low wall intermittent suction. The patient has been given MiraLAX and Carafate with good bowel movements. Since then, he has been tolerating the diet very well. No evidence of hiccups. He also has gallstones. At the time of discharge, patient is tolerating the diet very well. RADIOLOGY PROCEDURES: 1. CT scan of the abdomen and pelvis. No bowel obstruction. Thickening of the distal esophagus with possible esophagitis gallstones. 2. Ultrasound of the abdomen, gallstones, hepatic steatosis. 3. Chest x-ray, no evidence of acute disease. MICROBIOLOGY: Urine cultures were negative. Stool occult blood was positive. LABS: At the time of discharge, labs were as follows: CBC: White cell count 6.6, hematocrit 29.5, platelets 228,000, and SMA 7, sodium 144, potassium 3.7, chloride 111, BUN 13, creatinine 1.2, glucose 80, calcium 8.2, vitamin D is 15.5, vitamin B12 is normal. Folic acid is normal. DISCHARGE INSTRUCTIONS: 1. Protonix 40 mg daily, lisinopril 10 mg daily, MiraLAX 17 g daily, Zofran as needed for nausea, and vitamin D 08028 once a week, and follow up in my office in 10 days as well as Dr[address] Chavez. cc: MD Sandie Boss MD Michael Kelso, MD Hugh Nabers MTDD
== END 2018-07-16 10:46 | disposition home or self-care (01) | DRG 683 ==
LOC: ED 23:12 → SUATTDRO 07-09 05:35 → 4N 07-09 05:35
PROVIDERS: ADMIT Internal Medicine; ATTEND Internal Medicine
CPT/HCPCS: 71020; 71046; 74019; 74020; 74022; 74176; 76700; 80048; 80053; 80069; 80074; 80076; 81001; 82150; 82270; 82306; 82550; 82570; 82607; 82728; 82746; 83516; 83540; 83550; 83690; 83935; 83970; 84300; 85025; 85027; 86038; 86039; 87088; 87205; 96365; 96375; 99285; A9270; C9113; J1650; J2405; J2550; J3230; J3480; J7030; J7050; S0028; S0164